=== PATIENT | female | born 1990 | race Caucasian/White ===

== ENCOUNTER 2023-10-20 03:30 | Emergency (ER) | payer OTHER, SELFPAY ==
[2023-10-20 03:46] VITALS: BP 126/76; PULSE 117; RESP 20; TEMP 37.1; O2SAT 97; BMI 37.7
[2023-10-20 05:01] LABS: Basophils Absolute Auto 0.1 X10*3/uL (0.0-0.2); Basophils Percent Auto 0.7 % (0-2); Eosinophils Absolute Auto 0.2 X10*3/uL (0.0-0.4); Eosinophils Percent Auto 1.8 % (0-4); Hematocrit 40.5 % (37.0-47.0); Imm Gran Abs Auto 0.04 X10*3/uL (0.00-0.03); Imm Gran Pct Auto 0.5 % (0.0-0.4); Lymphocytes Absolute Auto 1.7 X10*3/uL (1.2-4.9); MANUAL DIFF FLAG NO; Mean Corpuscular HGB Conc 34.6 g/dl (31.0-35.0); Mean Corpuscular Hemoglobin 28.5 pg (27.0-33.0); Mean Corpuscular Volume 82.3 fL (80.0-98.0); Monocytes Absolute Auto 0.5 X10*3/uL (0.1-1.2); Monocytes Percent Auto 5.9 % (2-11); Neutrophils Absolute Auto 6.4 x10*3/uL (2.0-8.3); Neutrophils Percent Auto 72.1 % (45-73); Platelet Count 259 X10*3/uL (160-400); Red Blood Count 4.92 X10*6/uL (4.20-5.50); Red Cell Distribution Width 13.2 % (11.0-16.0); White Blood Count 8.8 X10*3/uL (4.8-10.8)
[2023-10-20 05:21] LABS: Alanine Aminotransferase 13 U/L (0-31); Albumin Level 4.3 g/dL (3.5-5.0); Alkaline Phosphatase 51 U/L (39-117); Anion Gap 13 (12-20); Aspartate Amino Transferase 13 U/L (5-31); Bilirubin Total 0.5 mg/dL (0.0-1.0); Blood Urea Nitrogen 14 mg/dL (9-16); Calcium 9.4 mg/dL (8.4-10.2); Carbon Dioxide 23 mmol/L (22-29); Chloride 109 mmol/L (96-108); Creatinine Clr Calc Pharmacy 88.4; Estimated Glomerular Filt Rate > 60; Ethanol < 10 mg/dL; Glucose Random 107 mg/dL (60-115); Potassium 3.2 mmol/L (3.3-5.1); Sodium 142 mmol/L (135-145)
[2023-10-20 05:49] LABS: HCG Quantitative < 2 mIU/mL
[2023-10-20 06:02] LABS: Magnesium 2.2 mg/dL (1.6-2.6)
[2023-10-20 06:09] VITALS: BP 109/74; PULSE 102; RESP 13; TEMP 36.5; O2SAT 98
[2023-10-20 06:41] LABS: Acetaminophen LAB < 3 mcg/mL (<30); Salicylate < 5.0 mg/dL (15-30)
[2023-10-20 06:44] LABS: Appearance Urine Cloudy; Color Urine Dark Yellow; Glucose Urine UA Negative (Negative); Leukocyte Esterase Urine Small (1+) (Negative); Nitrite Urine Negative (Negative); PH 5.5 (5.0-9.0); Specific Gravity - Urine >= 1.030 (1.005-1.025); UMIC TRIGGER UACC YES; Urine Blood Negative (Negative); Urine Ketones Trace mg/dL (Negative); Urine Protein 100 (2+) mg/dL (Neg-Trace)
[2023-10-20 06:46] LABS: Amphetamine Screen Urine POSITIVE (Not Detect); Barbiturates, Urine Not Detected (Not Detect); Benzodiazepines Screen Urine POSITIVE (Not Detect); Cannabinoid Screen Urine Not Detected (Not Detect); Cocaine Screen Urine Not Detected (Not Detect); Fentanyl, urine Not Detected (Not Detect); Opiate Screen Urine Not Detected (Not Detect); Phencyclidine Screen Urine Not Detected (Not Detect)
[2023-10-20 07:02] LABS: Bacteria Urine 4+ (None Seen); UACC Culture Trigger YES
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
[2023-10-20] MEDS: Potassium Chloride ER 20 MEQ TAB.ER.PRT 60 MEQ PO (07:12)
--- NOTE | 2023-10-20 07:17 | PC.NURSE ---
patient resting quietly in bed, respirations equal and unlabored. patient able to make needs known, states she is feeling tired. patient has sitter 1:1 at bedside, awaiting care team binh.
[2023-10-20 08:30] LABS: Lithium < 0.10 mmol/L (0.60-1.20)
[2023-10-20 11:24] VITALS: BP 111/71; PULSE 88; RESP 16; TEMP 36.6; O2SAT 99
[2023-10-20 12:55] LABS: Urine Pregnancy NEGATIVE (NEGATIVE)
[2023-10-20 12:56] LABS: UPreg QC Valid YES
--- NOTE | 2023-10-20 13:36 | MHC.CARE ---
Patient evaluated by the CARE Team and does not need an inpatient psychiatric hospitalization.
== END 2023-10-20 13:44 | disposition home or self-care (01) ==
PROVIDERS: Emergency Medicine Emergency Medical Services; Emergency Provider Student in an Organized Health Care Education/Training Program
DX: R45.851 Suicidal ideations (principal); Z79.899 Other long term (current) drug therapy; Z63.79 Other stressful life events affecting family and household
CPT/HCPCS: 36415; 80053; 80143; 80178; 80179; 80307; 81001; 81003; 81025; 83735; 84702; 85025; 87086; 99284; 99285; S9485